=== PATIENT | male | born 1960 | race Caucasian/White ===

== ENCOUNTER 2017-10-21 13:53 | Emergency (ER) | payer MEDICARE, MEDICAID ==
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
== END 2017-10-21 16:50 | disposition home or self-care (01) ==
LOC: JD.ED 13:53
DX: F41.9 Anxiety disorder, unspecified (principal); F32.9 Major depressive disorder, single episode, unspecified; R45.851 Suicidal ideations; R45.850 Homicidal ideations
CPT/HCPCS: 36415; 80053; 80306; 84443; 85025; 99285; G0480; 99283

== ENCOUNTER 2017-11-01 15:26 | Emergency (ER) | payer MEDICARE, MEDICAID | END 2017-11-01 15:55 | disposition left against medical advice (07) | LOC: JD.ED 15:26 | DX: Z53.21 Procedure and treatment not carried out due to patient leaving prior to being seen by health care provider (principal) ==

== ENCOUNTER 2017-12-21 07:58 | Emergency (ER) | payer MEDICARE, MEDICAID ==
--- NOTE | 2017-12-21 08:10 | EDM.PDOC ---
ED HPI GENERAL MEDICAL PROBLEM - General Chief Complaint: Lower Extremity Injury/Pain Stated Complaint: R LEG PAIN Time Seen by Provider: 12/21/17 08:08 - History of Present Illness INITIAL COMMENTS - FREE TEXT/NARRATIVE: 57-year-old male presents emergency room with right lower leg pain. This pain started on Wednesday now 5 days ago. The patient was upset at the time and noted some discomfort in his right lower leg. He has had some swelling and lower leg as well. Shortly after this the patient developed some left upper chest discomfort this did resolve on Wednesday and has not come back. He still has some right lower leg discomfort. Patient describes the pain is been in his mid calf posterior more on the lateral side. The patient is not having any shortness of breath. He does have a positive family history of DVTs however the patient has not had DVTs in the past. Patient has no history of coronary artery disease however has untreated hypertension. He's been diagnosed with hypertension in the past however has chosen not to take medication for this. Right Lower Leg Pain Score (Numeric/FACES): 5 - Related Data Allergies Allergy/AdvReac Type Severity Reaction Status Date / Time No Known Allergies Allergy Verified 12/21/17 08:04 Home Meds: Home Meds . [No Known Home Meds] 12/21/17 [History] Past Medical History Psychiatric History: Reports: Antisocial Behaviors, Bipolar Social & Family History - Tobacco Use Smoking Status *Q: Never Smoker - Recreational Drug Use Recreational Drug Use: No Review of Systems - Review of Systems Review Of Systems: See Below Constitutional: Reports: No Symptoms Ears: Reports: No Symptoms Nose: Reports: No Symptoms Mouth/Throat: Reports: No Symptoms Respiratory: Reports: No Symptoms, Other (Brief chest pain 5 days) Cardiovascular: Reports: No Symptoms, Other (Brief chest pain 5 days ago) GI/Abdominal: Reports: No Symptoms Genitourinary: Reports: No Symptoms Musculoskeletal: Reports: Leg Pain Skin: Reports: No Symptoms Neurological: Reports: No Symptoms Psychiatric: Reports: No Symptoms ED EXAM, GENERAL - Physical Exam Exam: See Below Exam Limited By: No Limitations General Appearance: Alert, No Apparent Distress Head: Atraumatic, Normocephalic Neck: Normal Inspection, Supple, Non-Tender, Full Range of Motion Respiratory/Chest: No Respiratory Distress, Lungs Clear, Normal Breath Sounds Cardiovascular: Regular Rate, Rhythm, No Murmur, Other (Minimal if any swelling in the right lower leg however he has some varicosities. Accurate exam could be limited.) Back Exam: Normal Inspection. No: CVA Tenderness (L), CVA Tenderness (R) Extremities: Other (Assessment palpatory discomfort in his right mid calf more posterior and lateral no obvious swelling compared to the other side however he has varicosities and accurate exam could be obscured.) Neurological: Alert, Normal Cognition Psychiatric: Normal Affect, Normal Mood Skin Exam: Warm, Dry, Intact, Tattoo(s) EKG INTERPRETATION EKG Date: 12/21/17 Rhythm: NSR Rate (Beats/Min): 92 Dutton: LAD-Left Dutton Deviation P-Wave: Present QRS: Normal ST-T: Depressed (Nonspecific changes inferior lateral) QT: Normal Comparison: NA - No Prior EKG EKG Interpretation Comments: Borderline EKG Course - Vital Signs Last Recorded V/S: Last Vital Signs Temp 35.6 C 12/21/17 08:05 Pulse 109 H 12/21/17 08:05 Resp 16 12/21/17 08:05 BP 161/100 H 12/21/17 08:05 Pulse Ox 100 12/21/17 08:05 - Orders/Labs/Meds Orders: Active Orders 24 hr Category Date Time Status EKG Documentation Completion [RC] STAT Care 12/21/17 08:27 Active Labs: Laboratory Tests 12/21/17 12/21/17 12/21/17 Range/Units 08:33 08:33 08:33 WBC 5.39 (4.23-9.07) K/mm3 RBC 5.26 (4.63-6.08) M/mm3 Hgb 15.4 (13.7-17.5) gm/L Hct 44.8 (40.1-51.0) % MCV 85.2 (79.0-92.2) fl MCH 29.3 (25.7-32.2) pg MCHC 34.4 (32.2-35.5) g/dl RDW Std Deviation 41.9 (35.1-43.9) fL Plt Count 205 (163-337) K/mm3 MPV 9.4 (9.4-12.3) fl Neutrophils % (Manual) 42 (40-60) % Band Neutrophils % 0 (0-10) % Lymphocytes % (Manual) 53 H (20-40) % Atypical Lymphs % 0 % Monocytes % (Manual) 4 (2-10) % Eosinophils % (Manual) 1 (0.8-7.0) % Basophils % (Manual) 0 L (0.2-1.2) Platelet Estimate Adequate RBC Morph Comment Normal PT 10.7 (8.0-13.0) SECONDS INR 0.98 APTT 28 (22-36) SECONDS Sodium 138 (136-145) mEq/L Potassium 3.6 (3.5-5.1) mEq/L Chloride 104 (98-107) mEq/L Carbon Dioxide 25 (21-32) mEq/L Anion Gap 12.6 (5-15) BUN 11 (7-18) mg/dL Creatinine 1.0 (0.7-1.3) mg/dL Est Cr Clr Drug Dosing 99.76 mL/min Estimated GFR (MDRD) > 60 (>60) mL/min BUN/Creatinine Ratio 11.0 L (14-18) Glucose 170 H (74-106) mg/dL Calcium 8.9 (8.5-10.1) mg/dL Total Bilirubin 0.7 (0.2-1.0) mg/dL AST 15 (15-37) U/L ALT 43 (16-63) U/L Alkaline Phosphatase 70 (46-116) U/L Troponin I < 0.017 (0.00-0.056) ng/mL Total Protein 7.5 (6.4-8.2) g/dl Albumin 3.7 (3.4-5.0) g/dl Globulin 3.8 gm/dL Albumin/Globulin Ratio 1.0 (1-2) - Re-Assessments/Exams Free Text/Narrative Re-Assessment/Exam: 12/21/17 08:40 Patient's history is concerning for potential DVT he is tachycardic we'll proceed to lower leg Doppler he has been complaining of some left thigh pain so get a bilateral study labs obtained the patient has not had any return of his chest pain since it occurred on Wednesday. Await labs and ultrasound report. His Wells score is intermediate 4.5. 12/21/17 08:45 Chest x-ray shows no acute changes raised hemidiaphragm on the right side I do not have prior for comparison. EKG is nondiagnostic he's got a leftward axis sinus nonspecific ST T changes inferiorly and laterally. 12/21/17 10:47 Ultrasound is negative for clots this point laboratory evaluation negative troponin. Discussed further workup the patient is doing better at this point offered d-dimer discussed the pros and cons of CT patient thinks he is doing better he like to go home at this point he agrees to return in 48 hours if not better certainly sooner if getting worse. Departure - Departure Time of Disposition: 10:47 Disposition: Home, Self-Care 01 Clinical Impression: Pain of right calf - Discharge Information Referrals: PCP,None [Primary Care Provider] - Forms: ED Department Discharge Additional Instructions: Return to the emergency room with any questions problems worsening symptoms return in 48 hours if not better sooner if getting worse. Return in immediately with any return of chest pain Try and establish with a regular physician consider treatment for your blood pressure. Consider taking a daily aspirin 81 mg. - My Orders Last 24 Hours: My Active Orders 12/21/17 08:27 EKG Documentation Completion [RC] STAT - Assessment/Plan Last 24 Hours: My Active Orders 12/21/17 08:27 EKG Documentation Completion [RC] STAT
--- NOTE | 2017-12-21 09:54 | CR ---
Chest: Two views of the chest were obtained. Comparison: No prior chest x-ray. Heart size and mediastinum are normal. Lungs show no acute parenchymal densities. Bony structures appear within normal limits for the patient's age. Impression: 1. Nothing acute is identified on two-view chest x-ray. Diagnostic code #1
--- NOTE | 2017-12-21 09:56 | US ---
Bilateral lower extremity deep venous ultrasound: Duplex and color flow imaging was obtained of the right and left common femoral, superficial femoral, proximal greater saphenous, popliteal, posterior tibial and peroneal veins. Comparison: No previous study. Findings: Right posterior tibial vein shows lack of flow and compression but shows normal augmentation. No definite thrombus is seen within this vein. Other veins show normal phasic flow, augmentation and compression. Impression: 1. No evidence of deep venous thrombosis within the right or left lower extremities. Diagnostic code #1
== END 2017-12-21 11:10 | disposition home or self-care (01) ==
LOC: JD.ED 07:58
DX: M79.661 Pain in right lower leg (principal); R07.89 Other chest pain
CPT/HCPCS: 36415; 71046; 71046-26; 80053; 84484; 85025; 85610; 85730; 93005; 93970; 93970-26; 99284; 99284-25

== ENCOUNTER 2018-01-31 12:40 | Emergency (ER) | payer MEDICARE, MEDICAID ==
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
[2018-01-31] MEDS ORDERED: Sodium Chloride 0.9% 10 ML Syringe FLUSH PRN (13:12)
[2018-01-31] MEDS ORDERED: LORazepam 2 MG/ML SDV IVPUSH ONE (13:12)
[2018-01-31] MEDS ORDERED: Aspirin 81 MG Tab.Chew PO ONE (13:12)
--- NOTE | 2018-01-31 15:11 | CR ---
Chest: Portable view of the chest was obtained. Comparison: Previous chest x-ray of 12/21/17. Heart size and mediastinum are within normal limits for portable technique. Lungs are clear. Bony structures are grossly intact. Impression: 1. Nothing acute is seen on portable chest x-ray. Diagnostic code #1
== END 2018-01-31 15:52 | disposition left against medical advice (07) ==
LOC: JD.ED 12:40
DX: R07.9 Chest pain, unspecified (principal); I10 Essential (primary) hypertension; Z88.0 Allergy status to penicillin; J45.909 Unspecified asthma, uncomplicated; R73.03 Prediabetes
CPT/HCPCS: 36415; 71045; 80053; 84484; 85025; 85610; 85730; 93005; 96374; 99284; A9270; J2060; J7050

== ENCOUNTER 2019-01-14 12:42 | Emergency (ER) | payer MEDICARE, MEDICAID ==
--- NOTE | 2019-01-14 13:28 | EDM.PDOC ---
ED HPI GENERAL MEDICAL PROBLEM - General Chief Complaint: Lower Extremity Injury/Pain Stated Complaint: L LEG WEAKNESS Time Seen by Provider: 01/14/19 13:02 Source of Information: Reports: Patient, RN Notes Reviewed - History of Present Illness INITIAL COMMENTS - FREE TEXT/NARRATIVE: 58-year-old male comes in with left knee pain. Dates he was with his shopping at [employer] when he had sudden onset of left knee pain. He is not aware that he twisted it or injured it in any way. He states last evening his left foot was hurting but today that was better. He also has been having pain of his left and lower mid back. He states before going shopping he took 2 shots of ". 95 proof alcohol"on "so he could handle the discomfort better. 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 [No Known Home Meds] 12/21/17 [History] Past Medical History HEENT History: Reports: Glaucoma, Impaired Vision, Macular Degeneration Other HEENT History: wears eyeglasses Cardiovascular History: Reports: Hypertension Respiratory History: Reports: Asthma Musculoskeletal History: Reports: Back Pain, Chronic, Fracture Neurological History: Reports: Head Trauma Other Neuro History: memory issues Psychiatric History: Reports: Antisocial Behaviors, Bipolar, Schizophrenia Endocrine/Metabolic History: Reports: Other (See Below) Other Endocrine/Metabolic History: "pre diabetes" - Infectious Disease History Infectious Disease History: Reports: Chicken Pox, Mumps - Past Surgical History HEENT Surgical History: Reports: Tonsillectomy GI Surgical History: Reports: Colonoscopy Social & Family History - Tobacco Use Smoking Status *Q: Never Smoker Second Hand Smoke Exposure: No - Caffeine Use Caffeine Use: Reports: None - Alcohol Use Days Per Week of Alcohol Use: 7 Number of Drinks Per Day: 4 Total Drinks Per Week: 28 Date of Last Drink: 01/14/19 - Recreational Drug Use Recreational Drug Use: Yes Drug Use in Last 12 Months: Yes Recreational Drug Type: Reports: Marijuana/Hashish Recreational Drug Use Frequency: Not Used In Over 6 Months Review of Systems - Review of Systems Review Of Systems: See Below Constitutional: Denies: Chills, Fever Eyes: Reports: No Symptoms Mouth/Throat: Reports: No Symptoms Respiratory: Denies: Shortness of Breath Cardiovascular: Denies: Chest Pain GI/Abdominal: Denies: Abdominal Pain, Nausea, Vomiting Musculoskeletal: Reports: Foot Pain (Last evening), Joint Pain (Left knee) Skin: Reports: No Symptoms Neurological: Denies: Numbness, Tingling, Weakness ED EXAM, GENERAL - Physical Exam Exam: See Below General Appearance: Alert, No Apparent Distress Head: Atraumatic Neck: Supple Respiratory/Chest: No Respiratory Distress, Lungs Clear Cardiovascular: Regular Rate, Rhythm Extremities: Joint Swelling (There is mild swelling of the lateral aspect of his left knee, knee otherwise nontender, mild pain with motion, lower leg is completely nontender, no warmth swelling or edema, foot and ankle also nontender ). No: Leg Pain, Increased Warmth, Redness Neurological: Alert, Oriented, No Motor/Sensory Deficits Skin Exam: Warm, Dry, Normal Color Course - Vital Signs Last Recorded V/S: Last Vital Signs Temp 97.1 F 01/14/19 12:53 Pulse 87 01/14/19 12:53 Resp 15 01/14/19 12:53 BP 175/126 H 01/14/19 12:53 Pulse Ox 96 01/14/19 12:53 - Orders/Labs/Meds Orders: Active Orders 24 hr Category Date Time Status Peripheral IV Care [RC] . DIRECTED Care 01/14/19 13:39 Active Knee Min 4V Lt [CR] Stat Exams 01/14/19 13:39 Taken Sodium Chloride 0.9% [Saline Flush] Med 01/14/19 13:38 Active 10 ml FLUSH ASDIRECTED PRN Peripheral IV Insertion Adult [OM.PC] Stat Oth 01/14/19 13:39 Ordered Medication Orders Sodium Chloride (Saline Flush) 10 ml FLUSH ASDIRECTED PRN PRN Reason: Keep Vein Open Last Admin: 01/14/19 14:17 Dose: 10 ml Labs: Laboratory Tests 01/14/19 01/14/19 Range/Units 14:00 14:00 WBC 5.55 (4.23-9.07) K/mm3 RBC 4.91 (4.63-6.08) M/mm3 Hgb 15.3 (13.7-17.5) gm/L Hct 44.5 (40.1-51.0) % MCV 90.6 (79.0-92.2) fl MCH 31.2 (25.7-32.2) pg MCHC 34.4 (32.2-35.5) g/dl RDW Std Deviation 46.2 H (35.1-43.9) fL Plt Count 176 (163-337) K/mm3 MPV 8.8 L (9.4-12.3) fl Neut % (Auto) 52.9 (34.0-67.9) % Lymph % (Auto) 32.4 (21.8-53.1) % [place] % (Auto) 9.9 (5.3-12.2) % Eos % (Auto) 4.0 (0.8-7.0) Baso % (Auto) 0.4 (0.1-1.2) % Neut # (Auto) 2.94 (1.78-5.38) K/mm3 Lymph # (Auto) 1.80 (1.32-3.57) K/mm3 [place] # (Auto) 0.55 (0.30-0.82) K/mm3 Eos # (Auto) 0.22 (0.04-0.54) K/mm3 Baso # (Auto) 0.02 (0.01-0.08) K/mm3 Sodium 141 (136-145) mEq/L Potassium 3.4 L (3.5-5.1) mEq/L Chloride 104 (98-107) mEq/L Carbon Dioxide 24 (21-32) mEq/L Anion Gap 16.4 H (5-15) BUN 17 (7-18) mg/dL Creatinine 0.8 (0.7-1.3) mg/dL Est Cr Clr Drug Dosing 119.88 mL/min Estimated GFR (MDRD) > 60 (>60) mL/min BUN/Creatinine Ratio 21.3 H (14-18) Glucose 128 H (74-106) mg/dL Calcium 8.7 (8.5-10.1) mg/dL Total Bilirubin 0.4 (0.2-1.0) mg/dL AST 11 L (15-37) U/L ALT 27 (16-63) U/L Alkaline Phosphatase 71 (46-116) U/L Total Protein 7.2 (6.4-8.2) g/dl Albumin 3.6 (3.4-5.0) g/dl Globulin 3.6 gm/dL Albumin/Globulin Ratio 1.0 (1-2) Ethyl Alcohol 0.07 (0.00) gm% Meds: Medications Generic Name Dose Route Start Last Admin Trade Name Freq PRN Reason Stop Dose Admin Sodium Chloride 10 ml 01/14/19 13:38 01/14/19 14:17 Saline Flush FLUSH 10 ml ASDIRECTED PRN Administration Keep Vein Open - Re-Assessments/Exams Free Text/Narrative Re-Assessment/Exam: 01/14/19 16:15 X-ray of left knee does show some mild degenerative changes, no fracture. In back relatively normal, calcium was normal, potassium very mildly low at 3.4. He does have a cane, does not want crutches. Discharge instructions as documented. Departure - Departure Time of Disposition: 13:27 Disposition: Home, Self-Care 01 Condition: Fair Clinical Impression: Strain of left knee Qualifiers: Encounter type: initial encounter Qualified Code(s): S86.912A - Strain of unspecified muscle(s) and tendon(s) at lower leg level, left leg, initial encounter - Discharge Information Instructions: Knee Pain, Adult, [id number] Referrals: PCP,None [Primary Care Provider] - Forms: ED Department Discharge Additional Instructions: Hay wrap left knee, rest and elevate leg is much as possible, Aleve 2 tabs twice daily for pain and inflammation. Be sure to take that with food. Use cane when walking. Avoid further injury. Follow-up with your regular medical clinic provider in about 4-5 days if not much better. Physical therapy would be the next option. Her potassium was very mildly low today at 3.4. Try eat one or 2 bananas a day, other fruit and vegetables to help build that level up. Potatoes are also high in potassium. - My Orders Last 24 Hours: My Active Orders 01/14/19 13:38 Sodium Chloride 0.9% [Saline Flush] 10 ml FLUSH ASDIRECTED PRN 01/14/19 13:39 Peripheral IV Care [RC] . DIRECTED Knee Min 4V Lt [CR] Stat Peripheral IV Insertion Adult [OM.PC] Stat - Assessment/Plan Last 24 Hours: My Active Orders 01/14/19 13:38 Sodium Chloride 0.9% [Saline Flush] 10 ml FLUSH ASDIRECTED PRN 01/14/19 13:39 Peripheral IV Care [RC] . DIRECTED Knee Min 4V Lt [CR] Stat Peripheral IV Insertion Adult [OM.PC] Stat
[2019-01-14] MEDS ORDERED: Sodium Chloride 0.9% 10 ML Syringe FLUSH PRN (13:38)
--- NOTE | 2019-01-15 08:09 | CR ---
Left knee: Four views of the left knee were obtained. Comparison: No prior knee exam. Minimal medial joint space narrowing is seen. Lateral joint space is preserved. Minimal osteophyte is noted off the lateral articular margin. Moderately large joint effusion is seen. Small osteophytes are noted off the patella. Impression: 1. Minimal degenerative change. 2. Moderately large joint effusion. Diagnostic code #3
== END 2019-01-14 16:00 | disposition home or self-care (01) ==
LOC: JD.ED 12:42
DX: S86.912A Strain of unspecified muscle(s) and tendon(s) at lower leg level, left leg, initial encounter (principal); I10 Essential (primary) hypertension; Z88.8 Allergy status to other drugs, medicaments and biological substances; X58.XXXA Exposure to other specified factors, initial encounter; Y92.512 Supermarket, store or market as the place of occurrence of the external cause
CPT/HCPCS: 36415; 73564; 80053; 85025; 99283; G0480

== ENCOUNTER 2019-05-01 16:58 | Emergency (ER) | payer MEDICARE, MEDICAID ==
--- NOTE | 2019-05-01 18:03 | EDM.PDOC ---
ED HPI GENERAL MEDICAL PROBLEM - General Chief Complaint: General Stated Complaint: WEAK AND CONFUSED Time Seen by Provider: 05/01/19 18:03 Source of Information: Reports: Patient, Family (spouuse) History Limitations: Reports: No Limitations - History of Present Illness INITIAL COMMENTS - FREE TEXT/NARRATIVE: 58-year-old male presents to the ED with chief complaint of just generally not feeling well for the last 3-4 days. States that he has essentially not eaten much at all for the last 34 days. His reports that he does this quite often where he will almost fast for a few days and then often becomes ill. He states he still making adequate urine. He denies fever or chills. He feels lightheaded dizzy when standing and wants to lay back down. He has been recently started on lithium 300 mg daily and the plan is to follow-up with psychiatry in another week with a plan likely to increase this dosage. He indicates that he's been sleeping fairly well except for last night. He does not feel suicidal. No signs or symptoms that would suggest grandiose thought processes or hypomanic behavior. He believes that he has lost a fair amount of weight but he can't be sure how much. He states he works outside [employer] and lately there is been high humidity and temperatures in the 80s. He does admit to excessive sweating intermittently. Vital signs are stable with blood pressure in the normal range. He is afebrile. Pulse of 82 and sinus. Sats are 99 % on room air. Blood pressure mildly elevated at 145/97. Blood pressure came down to 142/92 over time. Onset: Gradual Onset Date: 04/27/19 Duration: Day(s):, Getting Worse Location: Reports: Generalized (MRI sense of weakness lightheadedness dizziness and nausea.) Quality: Reports: Other Severity: Moderate (As above) Improves with: Reports: None Worsens with: Reports: None Context: Reports: Other. Denies: Activity, Exercise, Lifting, Sick Contact, Trauma Associated Symptoms: Reports: Confusion (Patient has been fasting more or less trying to lose weight for the last for 5 days.), Diaphoresis, Malaise, Nausea/ Vomiting, Weakness. 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 [No Known Home Meds] 12/21/17 [History] Past Medical History - Past Health History Medical/Surgical History: Denies Medical/Surgical History HEENT History: Reports: Glaucoma, Impaired Vision, Macular Degeneration Other HEENT History: wears eyeglasses Cardiovascular History: Reports: Hypertension Respiratory History: Reports: Asthma Musculoskeletal History: Reports: Back Pain, Chronic, Fracture Neurological History: Reports: Head Trauma Other Neuro History: memory issues Psychiatric History: Reports: Antisocial Behaviors, Bipolar, Schizophrenia Endocrine/Metabolic History: Reports: Other (See Below) Other Endocrine/Metabolic History: "pre diabetes" - Infectious Disease History Infectious Disease History: Reports: Chicken Pox, Mumps - Past Surgical History HEENT Surgical History: Reports: Tonsillectomy GI Surgical History: Reports: Colonoscopy Social & Family History - Tobacco Use Smoking Status *Q: Never Smoker - Caffeine Use Caffeine Use: Reports: Coffee, Tea - Recreational Drug Use Recreational Drug Use: Yes Drug Use in Last 12 Months: Yes Recreational Drug Type: Reports: Marijuana/Hashish Recreational Drug Use Frequency: Socially ED ROS GENERAL - Review of Systems Review Of Systems: See Below Constitutional: Reports: Malaise, Weakness, Fatigue, Decreased Appetite ( Patient has been fasting in an attempt to lose weight to last for 5 days.), Weight Loss. Denies: Fever, Chills HEENT: Reports: No Symptoms Respiratory: Denies: Shortness of Breath, Wheezing, Pleuritic Chest Pain Cardiovascular: Reports: Blood Pressure Problem, Lightheadedness. Denies: Chest Pain, Claudication, Dyspnea on Exertion, Edema, Orthopnea (He is on blood pressure medication as well.), Palpitations Endocrine: Reports: Fatigue GI/Abdominal: Reports: Decreased Appetite, Nausea. Denies: Vomiting : Reports: No Symptoms Musculoskeletal: Reports: No Symptoms Skin: Reports: Diaphoresis Neurological: Reports: Confusion, Dizziness, Difficulty Walking (Due to weakness.), Weakness. Denies: Numbness, Tingling Psychiatric: Reports: No Symptoms Hematologic/Lymphatic: Reports: No Symptoms Immunologic: Reports: No Symptoms ED EXAM, GENERAL - Physical Exam Exam: See Below Exam Limited By: No Limitations General Appearance: Alert, WD/WN, No Apparent Distress, Other (Vital signs are within normal limits other than mild hypertension and 145/97.) Eye Exam: Bilateral Eye: Normal Inspection Throat/Mouth: Normal Inspection, Normal Lips, Normal Oropharynx, Other Head: Atraumatic, Normocephalic (Tongue is minimally dry.) Neck: Normal Inspection, Supple, Non-Tender, Full Range of Motion. No: Lymphadenopathy (L), Lymphadenopathy (R) Respiratory/Chest: No Respiratory Distress, Lungs Clear, Normal Breath Sounds, No Accessory Muscle Use Cardiovascular: Normal Peripheral Pulses, Regular Rate, Rhythm, No Edema, No Gallop, No Murmur, No Rub Peripheral Pulses: 2+: Carotid (L), Carotid (R), Posterior Tibial (L), Posterior Tibial (R), Dorsalis Pedis (L), Dorsalis Pedis (R) GI/Abdominal: Normal Bowel Sounds, Soft, Non-Tender, No Organomegaly, No Abnormal Bruit, No Mass, Pelvis Stable (Male) Exam: No Hernia Back Exam: Normal Inspection, Full Range of Motion. No: CVA Tenderness (L), CVA Tenderness (R) Extremities: Normal Inspection, Normal Range of Motion, Non-Tender, No Pedal Edema, Normal Capillary Refill Neurological: Oriented, CN II-XII Intact, Normal Cognition Psychiatric: Normal Affect, Normal Mood Skin Exam: Warm, Dry, Intact, Normal Color, No Rash Course - Vital Signs Last Recorded V/S: Last Vital Signs Temp 36.3 C 05/01/19 17:13 Pulse 82 05/01/19 17:13 Resp 18 05/01/19 17:13 BP 145/97 H 05/01/19 17:13 Pulse Ox 99 05/01/19 17:13 - Orders/Labs/Meds Orders: Active Orders 24 hr Category Date Time Status Dextrose 5%-Lactated Ringers 1,000 ml Med 05/01/19 18:15 Active IV ASDIRECTED Medication Orders Dextrose/Lactated Ringer's (Dextrose 5%-Lactated Ringers) 1,000 mls @ 999 mls/ hr IV ASDIRECTED VEL Last Admin: 05/01/19 18:32 Dose: 999 mls/hr Labs: Laboratory Tests 05/01/19 05/01/19 05/01/19 Range/Units 18:25 18:25 18:25 WBC 5.09 (4.23-9.07) K/mm3 RBC 4.87 (4.63-6.08) M/mm3 Hgb 15.1 (13.7-17.5) gm/L Hct 42.9 (40.1-51.0) % MCV 88.1 (79.0-92.2) fl MCH 31.0 (25.7-32.2) pg MCHC 35.2 (32.2-35.5) g/dl RDW Std Deviation 39.8 (35.1-43.9) fL Plt Count 202 (163-337) K/mm3 MPV 9.3 L (9.4-12.3) fl Neutrophils % (Manual) 59 (40-60) % Band Neutrophils % 0 (0-10) % Lymphocytes % (Manual) 36 (20-40) % Atypical Lymphs % 0 % Monocytes % (Manual) 4 (2-10) % Eosinophils % (Manual) 1 (0.8-7.0) % Basophils % (Manual) 0 L (0.2-1.2) Platelet Estimate Adequate Plt Morphology Comment Normal RBC Morph Comment Normal Sodium 137 (136-145) mEq/L Potassium 3.4 L (3.5-5.1) mEq/L Chloride 101 (98-107) mEq/L Carbon Dioxide 24 (21-32) mEq/L Anion Gap 15.4 H (5-15) BUN 13 (7-18) mg/dL Creatinine 1.0 (0.7-1.3) mg/dL Est Cr Clr Drug Dosing 98.58 mL/min Estimated GFR (MDRD) > 60 (>60) mL/min BUN/Creatinine Ratio 13.0 L (14-18) Glucose 126 H (74-106) mg/dL Serum Osmolality 287 (280-300) mosm/kg Calcium 8.9 (8.5-10.1) mg/dL Magnesium 1.9 (1.8-2.4) mg/dl Total Bilirubin 0.8 (0.2-1.0) mg/dL AST 12 L (15-37) U/L ALT 23 (16-63) U/L Alkaline Phosphatase 72 (46-116) U/L Total Protein 7.1 (6.4-8.2) g/dl Albumin 3.8 (3.4-5.0) g/dl Globulin 3.3 gm/dL Albumin/Globulin Ratio 1.2 (1-2) Ketones 0.23 (0.0-0.3) mM Meds: Medications Generic Name Dose Route Start Last Admin Trade Name Freq PRN Reason Stop Dose Admin Dextrose/Lactated Ringer's 1,000 mls @ 999 mls/hr 05/01/19 18:15 05/01/19 18: 32 Dextrose 5%-Lactated Ringers IV 999 mls/hr ASDIRECTED VEL Administration Discontinued Medications Generic Name Dose Route Start Last Admin Trade Name Freq PRN Reason Stop Dose Admin Metoclopramide HCl 10 mg 05/01/19 18:10 05/01/19 18:32 Reglan IVPUSH 05/01/19 18:11 10 mg ONETIME ONE Administration Potassium Chloride 20 meq 05/01/19 19:43 Klor-Con M20 PO 05/01/19 19:44 ONETIME ONE - Radiology Interpretation Free Text/Narrative:: 58-year-old male presents to the ED with generalized feeling of unwellness. He states he feels lightheaded, and dizzy, confused at times and disoriented. His reports that he's been fasting for the last 4-5 days in an effort to lose weight and this is happened on several occasions in the past. Patient is not a diabetic but has been labeled as prediabetic. Resume and therefore he tries to lose weight. He reports that he does drink a lot of water. It appears that he was started on lithium 300 mg orally once daily about 3 weeks ago. He is to have follow-up psychiatry visit in a week's time. Examination is normal with normal heart rate no signs of significant volume depletion. Query hyponatremia, hypokalemia, hypomagnesemia and/or systemic ketoacidosis from fasting. Plan routine labs to include serum ketones and serum osmolality. Plan will be D5 Ringer's lactate at open. Reglan 10 mg IV for nausea relief. - Re-Assessments/Exams Free Text/Narrative Re-Assessment/Exam: 05/01/19 19:04 Labs reveal a normal white count at 5.09. Differential is 59% neutrophils and no band cells. Hemoglobin is 15.1 with hematocrit of 42.9. Platelet count is normal at 202,000. Sodium 137 with potassium slightly low at 3.4. Chloride 101 with a bicarbonate of 24. And a gap is 15.4. BUN is 13 with a creatinine of 1.0. GFR is greater than 60. Glucose is 126. Calcium is 8.9 with a magnesium of 1.9. Liver function is normal. Total protein is 7.1 with an albumin fraction of 3.8. Serum ketones are 0.23--upper limits of normal. Serum osmolality is pending. Departure - Departure Time of Disposition: 19:45 Disposition: Home, Self-Care 01 Condition: Fair Clinical Impression: Hypokalemia due to inadequate potassium intake, Fluid volume depletion, Hypokalemia Hypertension Qualifiers: Hypertension type: unspecified Qualified Code(s): I10 - Essential (primary) hypertension - Discharge Information *PRESCRIPTION DRUG MONITORING PROGRAM REVIEWED*: Not Applicable *COPY OF PRESCRIPTION DRUG MONITORING REPORT IN PATIENT SERGE: Not Applicable Instructions: Hypokalemia, Dehydration, Adult, [id number] Referrals: PCP,Not In Area [Primary Care Provider] - Forms: ED Department Discharge Additional Instructions: Evaluation the emergency room today in regards to generally not feeling well for the last 3-4 days. Today particularly feel dizzy, lightheaded, weak all over with associated nausea. By history you have been taking in very little food for the last 4 days in an effort to lose weight. Her pressure is found to be mildly elevated at 147/97 and did come down to as low as 142/92. It is mildly elevated and you likely would benefit from a blood pressure pill on a daily basis. His follow-up with your normal care provider in this regard. Lab tests reveal that you are little low on potassium in your bloodstream and were mildly dehydrated. No major abnormalities were appreciated in your lab tests in terms of kidney function and liver function were normal. You're treated in the emergency department with a liter of IV fluids to provide rehydration and restore sodium and potassium leves. Because your potssium roldan bit to ow and also received a potassium supplement pill --20 mEq by mouth. Treatment at home should be a Powerade 0 at least once daily while you were trying to lose weight this contains all the essential electrolytes the true knee but does not have any sugar . This would maintain hydration and maintain potassium and sodium levels. Suggest 2 bottles daily of 20 ounces each. - My Orders Last 24 Hours: My Active Orders 05/01/19 18:15 Dextrose 5%-Lactated Ringers 1,000 ml IV ASDIRECTED - Assessment/Plan Last 24 Hours: My Active Orders 05/01/19 18:15 Dextrose 5%-Lactated Ringers 1,000 ml IV ASDIRECTED
[2019-05-01] MEDS ORDERED: Metoclopramide 10 MG/2 ML SDV IVPUSH ONE (18:10)
[2019-05-01] MEDS ORDERED: Dextrose 5%-Lactated Ringers 1,000 ML IV SCH (18:15)
[2019-05-01] MEDS ORDERED: Potassium Chloride 20 MEQ Tab.ER PO ONE (19:43)
== END 2019-05-01 20:02 | disposition home or self-care (01) ==
LOC: JD.ED 16:58
DX: E87.6 Hypokalemia (principal); E86.9 Volume depletion, unspecified; I10 Essential (primary) hypertension; Z88.8 Allergy status to other drugs, medicaments and biological substances
CPT/HCPCS: 36415; 80053; 82009; 83735; 83930; 85007; 85027; 96361; 96374; 99284; A9270; J2765; J7042